=== PATIENT | male | born 1970 | race African-American/Black ===

== ENCOUNTER 2018-03-18 11:42 | Emergency (ER) | payer OTHER ==
[~2018-03-18] VITALS: Ht 182.8 cm; Wt 123.4 kg
[~2018-03-18 11:42] MED LIST: ACULAR 3 ML3 M1 OP; COMPAZINE10 MG PO; DARVOCET N 1001 TAB PO; DOXYCYCLINE MO100 MG PO; FLONASE0.05 MG/AC NS; KEFLEX500 MG PO; TRAMADOL HCL50 MG PO; [UNRECOGNIZED DRUG - OTHER] TP
[2018-03-18] MEDS ORDERED: ZOFRAN4 MG PO (11:51)
[2018-03-18] MEDS ORDERED: AUGMENTIN 875875 MG PO (11:51)
== END 2018-03-18 12:41 | disposition home or self-care (01) ==
LOC: ED 11:42
DX: S81.051A Open bite, right knee, initial encounter (principal); R03.0 Elevated blood-pressure reading, without diagnosis of hypertension; Z91.041 Radiographic dye allergy status; W54.0XXA Bitten by dog, initial encounter; Y93.89 Activity, other specified; Y92.89 Other specified places as the place of occurrence of the external cause; Y99.8 Other external cause status

== ENCOUNTER 2018-10-24 15:49 | Emergency (ER) | payer OTHER ==
[~2018-10-24] VITALS: Wt 122.5 kg
[~2018-10-24 15:49] MED LIST changes: +AUGMENTIN 875875 MG PO; +ZOFRAN4 MG PO
[2018-10-24] MEDS ORDERED: LOSARTAN POTASS25 M1 PO (15:53)
[2018-10-24] MEDS ORDERED: LOPRESSOR5 MG/5 M1 PO (15:53)
[2018-10-24] MEDS ORDERED: ZYRTEC10 M3 PO (15:54)
[2018-10-24] MEDS ORDERED: METFORMIN750 MG PO (15:54)
[2018-10-24] MEDS ORDERED: GLIPIZIDE XL2.5 M1 PO (15:54)
[2018-10-24] MEDS ORDERED: [UNRECOGNIZED DRUG - REMARK] PO (15:55)
[2018-10-24] MEDS ORDERED: CLARITIN10 MG PO (18:25)
[2018-10-24] MEDS ORDERED: KENALOG 0.025%15 GM T (18:25)
== END 2018-10-24 19:06 | disposition home or self-care (01) ==
LOC: ED 15:49
DX: J02.9 Acute pharyngitis, unspecified (principal); R09.81 Nasal congestion; Z91.041 Radiographic dye allergy status; Z79.899 Other long term (current) drug therapy

== ENCOUNTER 2019-10-29 10:51 | Emergency (ER) | payer OTHER ==
[~2019-10-29] VITALS: Ht 185.4 cm; Wt 120.2 kg
[~2019-10-29 10:51] MED LIST changes: +CLARITIN10 MG PO; +GLIPIZIDE XL2.5 M1 PO; +KENALOG 0.025%15 GM T; +LOPRESSOR5 MG/5 M1 PO; +LOSARTAN POTASS25 M1 PO; +METFORMIN750 MG PO; +ZYRTEC10 M3 PO; +[UNRECOGNIZED DRUG - REMARK] PO
[2019-10-29] MEDS ORDERED: AMOXICILLIN500 M2 PO (11:16)
[2019-10-29] MEDS ORDERED: FLONASE ALLERG9.9 ML NAS (11:16)
== END 2019-10-29 11:34 | disposition home or self-care (01) ==
LOC: ED 10:51
DX: J32.9 Chronic sinusitis, unspecified (principal); Z91.041 Radiographic dye allergy status; Z79.899 Other long term (current) drug therapy

== ENCOUNTER 2023-05-06 15:14 | Emergency (ER) | payer OTHER ==
[~2023-05-06] VITALS: Ht 185.4 cm; Wt 120.2 kg
[~2023-05-06 15:14] MED LIST changes: +AMOXICILLIN500 M2 PO; +FLONASE ALLERG9.9 ML NAS
[2023-05-06] MEDS ORDERED: CHLORASEPTIC 1177 ML MM (15:57)
[2023-05-06] MEDS ORDERED: FLUCONAZOLE100 MG PO (15:57)
[2023-05-06] MEDS ORDERED: AMOX-CLAV 875-1 EACH PO (15:57)
[2023-05-06 16:07] LABS: BASO % 0.4 % (0.0-1.0); EOS # 0.6 10*3/uL (0.0-0.4); EOS % 7.5 % (1.0-4.0); HEMATOCRIT 50.7 % (42.0-52.0); LYMPH # 1.6 10*3/uL (1.3-4.4); LYMPH % 20.7 % (27.0-41.0); MEAN CELL VOLUME 86.1 fl (80.0-94.0); MEAN CORPUSCULAR HGB CONC 31.4 g/dl (33.0-37.0); MEAN PLATELET VOLUME 11.7 fl (9.6-12.3); MONO # 0.6 10*3/uL (0.1-1.0); MONO % 7.3 % (3.0-9.0); NEUT # 4.8 10*3/uL (2.3-7.9); NEUT % 63.7 % (47.0-73.0); PLATELET COUNT AUTOMATED 175 10*3/uL (130-400); RED BLOOD COUNT 5.89 10*6/uL (4.50-5.90); WHITE BLOOD COUNT 7.6 10*3/uL (4.8-10.8)
[2023-05-06 16:36] LABS: ALKALINE PHOSPHATASE 80 U/L (46-116); BUN 7 mg/dl (9-23); CHLORIDE 103 mmol/L (98-107); POTASSIUM 4.3 mmol/L (3.4-5.1); SGPT/ALT 28 U/L (10-49); TOTAL PROTEIN 7.6 gm/dL (6.0-8.0)
== END 2023-05-06 16:38 | disposition home or self-care (01) ==
LOC: ED 15:14
PROVIDERS: Internal Medicine
DX: B37.0 Candidal stomatitis (principal); J32.9 Chronic sinusitis, unspecified; Z91.041 Radiographic dye allergy status; Z98.890 Other specified postprocedural states

== ENCOUNTER 2024-07-12 21:22 | Emergency (ER) | payer OTHER ==
[~2024-07-12] VITALS: Ht 182.8 cm; Wt 117.9 kg
[~2024-07-12 21:22] MED LIST changes: +AMOX-CLAV 875-1 EACH PO; +CHLORASEPTIC 1177 ML MM; +FLUCONAZOLE100 MG PO
[2024-07-12] MEDS ORDERED: METFORMIN XR500 MG PO (21:53)
[2024-07-12] MEDS ORDERED: Lidocaine Hydrochloride 15 ML UDC PO STA (22:11)
[2024-07-12] MEDS ORDERED: BENZOCAINE 20% 11.9 GM GEL T STA (22:11)
[2024-07-12] MEDS ORDERED: NAPROSYN500 MG PO (22:13)
[2024-07-12] MEDS ORDERED: PENICILLIN VK500 MG PO (22:13)
[2024-07-12] MEDS ORDERED: Acetaminophen/Oxycodone 5 MG/325 MG TABLET PO ONE (22:15)
[2024-07-12] MEDS ORDERED: PENICILLIN V POTASSIUM 500 MG TAB PO ONE (22:15)
[2024-07-12] MEDS ORDERED: Ketorolac Tromethamine 60 MG/2 ML VIAL IM ONE (22:15)
== END 2024-07-12 23:09 | disposition home or self-care (01) ==
LOC: ED 21:22
DX: K04.7 Periapical abscess without sinus (principal); Z91.041 Radiographic dye allergy status; Z98.890 Other specified postprocedural states

== ENCOUNTER 2024-11-29 16:45 | Emergency (ER) | payer OTHER ==
[~2024-11-29] VITALS: Ht 185.4 cm; Wt 120.2 kg
[~2024-11-29 16:45] MED LIST changes: +METFORMIN XR500 MG PO; +NAPROSYN500 MG PO; +PENICILLIN VK500 MG PO
[2024-11-29] MEDS ORDERED: SODIUM CHLORIDE 0.9% 1,000 ML IV ONE (17:15)
[2024-11-29] MEDS ORDERED: Meclizine Hydrochloride 25 MG TAB PO ONE ×2 (17:15→19:55)
[2024-11-29 17:31] LABS: BASO % 0.3 % (0.0-1.0); EOS # 0.4 10*3/uL (0.0-0.4); EOS % 4.6 % (1.0-4.0); HEMATOCRIT 54.3 % (42.0-52.0); MEAN CELL VOLUME 87.4 fl (80.0-94.0); MEAN CORPUSCULAR HGB 26.9 pg (27.0-31.0); MEAN CORPUSCULAR HGB CONC 30.8 g/dl (33.0-37.0); MEAN PLATELET VOLUME 11.1 fl (9.6-12.3); MONO # 0.7 10*3/uL (0.1-1.0); MONO % 7.6 % (3.0-9.0); NEUT # 5.6 10*3/uL (2.3-7.9); NEUT % 63.7 % (47.0-73.0); PLATELET COUNT AUTOMATED 195 10*3/uL (130-400); RED BLOOD COUNT 6.21 10*6/uL (4.50-5.90); RED CELL DISTRI WIDTH 14.3 % (0-14.5); WHITE BLOOD COUNT 8.7 10*3/uL (4.8-10.8)
[2024-11-29 18:01] LABS: BUN 11 mg/dl (9-23); CHLORIDE 102 mmol/L (98-107); POTASSIUM 3.8 mmol/L (3.4-5.1)
[2024-11-29] MEDS ORDERED: AVPAK AZITHROM250 M1 PO (18:15)
[2024-11-29] MEDS ORDERED: ANTIVERT25 M2 PO (18:15)
== END 2024-11-29 19:09 | disposition home or self-care (01) ==
LOC: ED 16:45
PROVIDERS: Emergency Medicine
DX: J32.9 Chronic sinusitis, unspecified (principal); R42 Dizziness and giddiness; R09.81 Nasal congestion; R09.89 Other specified symptoms and signs involving the circulatory and respiratory systems; I10 Essential (primary) hypertension; Z91.041 Radiographic dye allergy status; Z79.899 Other long term (current) drug therapy; Z79.84 Long term (current) use of oral hypoglycemic drugs; E11.9 Type 2 diabetes mellitus without complications; E78.5 Hyperlipidemia, unspecified